=== PATIENT | male | born 1945 | race African-American/Black ===

== ENCOUNTER → 2017-05-08 | Outpatient (CLI) | payer OTHER ==
[~2017-05-08] MED LIST: ZESTRIL,PRINIVIL5 MG PO
== END | disposition home or self-care (01) ==
LOC: AMB 10:00
DX: N40.1 Benign prostatic hyperplasia with lower urinary tract symptoms (principal); R97.20 Elevated prostate specific antigen [PSA]; H91.90 Unspecified hearing loss, unspecified ear; N52.9 Male erectile dysfunction, unspecified; M19.90 Unspecified osteoarthritis, unspecified site
CPT/HCPCS: 99213

== ENCOUNTER → 2017-05-29 | Outpatient (CLI) | payer OTHER, MEDICARE | END | disposition home or self-care (01) | LOC: CDC 08:39 | DX: R94.31 Abnormal electrocardiogram [ECG] [EKG] (principal) | CPT/HCPCS: 93000 ==

== ENCOUNTER 2017-06-05 10:02 | Day surgery (SDC) | payer OTHER ==
[~2017-06-05] VITALS: Ht 182.9 cm; Wt 72.5 kg
[~2017-06-05 10:02] MED LIST changes: +ENALAPRIL MALEA10 MG PO; +HYDROCHLOROTHIA25 MG PO; +METOPROLOL TART50 MG PO; +NAPROXEN500 MG PO; +OMEPRAZOLE20 MG PO; +SIMVASTATIN40 MG PO; +TAMSULOSIN HCL0.4 MG PO
[2017-06-05 10:44] VITALS: BP 136/85
[2017-06-05 11:13] LABS: EOSINOPHIL (%) 2.1 % (0-5); EOSINOPHIL COUNT 0.1 K/uL (0-0.3); HEMATOCRIT 42.1 % (38.0-50.0); IMMATURE GRANULOCYTE (%) 0.2 % (0.0-0.7); INSTRUMENT ABS NEUTROPHIL CT 2.9 K/uL; LYMPHOCYTE COUNT 2.7 K/uL (1.0-2.8); MCH 30.1 PG (29.0-34.0); MCV 88.6 FL (86-99); MEAN PLAT.VOLUME 9.7 uM^3 (9.0-12.4); MONOCYTE (%) 14.3 % (3-12); NEUTROPHIL (%) 42.7 % (45-76); NEUTROPHIL COUNT 2.9 K/uL (1.8-6.4); PLATELET COUNT 237 K/uL (156-360); RBC DIS.WIDTH-CV 12.8 % (11.8-14.6); RBC DIS.WIDTH-SD 41.8 % (39-53); RED BLOOD COUNT 4.75 M/uL (4.00-5.50); WHITE BLOOD COUNT 6.7 K/uL (4.1-10.2)
[2017-06-05 14:01] VITALS: BP 163/96
[2017-06-05 15:13] VITALS: BP 133/86
== END 2017-06-05 16:00 | disposition home or self-care (01) ==
LOC: SDC
PROVIDERS: Urology
DX: N42.31 Prostatic intraepithelial neoplasia (principal); N40.0 Benign prostatic hyperplasia without lower urinary tract symptoms; I10 Essential (primary) hypertension; N52.9 Male erectile dysfunction, unspecified; H91.3 Deaf nonspeaking, not elsewhere classified; K21.9 Gastro-esophageal reflux disease without esophagitis
CPT/HCPCS: 85025; 88305; 88341 TC; 88342 TC; J0131; J1100; J1956; J2250; J2405; J3010

== ENCOUNTER → 2017-07-10 | Outpatient (CLI) | payer OTHER | END | disposition home or self-care (01) | LOC: AMB 12:00 | DX: N40.0 Benign prostatic hyperplasia without lower urinary tract symptoms (principal); N42.31 Prostatic intraepithelial neoplasia | CPT/HCPCS: 99212 ==